=== PATIENT | male | born 1965 | race African-American/Black ===

== ENCOUNTER 2019-09-24 06:35 | Emergency (ER) | payer SELFPAY ==
[2019-09-24] MEDS ORDERED: Aspirin Chewable 81 MG TAB ONE ×2 (07:04)
[2019-09-24] MEDS ORDERED: Nitroglycerin 2% Ointment 1 INCH/1 GM Packet ONE (07:04)
[2019-09-24 07:24] LABS: ALT (SGPT) 24 U/L (8-55); AST (SGOT) 20 U/L (5-34); Albumin 4.1 g/dL (3.5-5.0); Alkaline Phosphatase 59 U/L (40-110); Anion Gap 17 mmol/L (10-20); BUN (Urea Nitrogen) 14 mg/dL (8.4-25.7); Bilirubin, Total 0.4 mg/dL (0.2-1.2); CK (CPK) 121 U/L (30-200); Calc. Creatinine Clearance 0 mL/min (70-130); Calcium 9.8 mg/dL (7.8-10.44); Carbon Dioxide 27 mmol/L (22-29); Chloride 101 mmol/L (98-107); Estimated GFR-MDRD 78; Glucose 88 mg/dL (70-105); Potassium 3.8 mmol/L (3.5-5.1); Protein, Total 8.1 g/dL (6.0-8.3); Sodium 141 mmol/L (136-145)
[2019-09-24 07:29] LABS: #Basophils 0.1 thou/uL (0.0-0.2); #Eosinphils 0.1 thou/uL (0.0-0.7); #Lymphocytes 2.8 thou/uL (1.20-3.40); #Monocytes 0.4 thou/uL (0.11-0.59); #Neutrophils 3.1 thou/uL (1.40-6.50); %Basophils 1.6 % (0.0-1.0); %Lymphocytes 44.3 % (21.0-51.0); %Monocytes 5.7 % (0.0-10.0); %Neutrophils 47.4 % (42.0-75.0); Band 1 % (5-11); Hemoglobin 12.5 g/dL (14.0-18.0); Large Platelets SLIGHT; Lymphocytes 42 % (21-51); MDiff Complete? YES; Mean Corpuscular HGB CONC 29.8 g/dL (32.0-36.0); Mean Corpuscular Hemoglobin 28.6 pg (27.0-31.0); Mean Corpuscular Volume 96.1 fL (78.0-98.0); Mean Platelet Volume 12.9 fL (7.4-10.4); Monocytes 7 % (0-10); Neutrophil 49 % (42-75); Platelet Count 150 thou/uL (130-400); Platelet Morphology Comment Appears Adequate; RBC Distribution Width 12.4 % (11.5-14.5); RBC Morphology Normal; Reactive Lymphocytes 1 % (0-10); Red Blood Cell (RBC) Count 4.39 mill/uL (4.70-6.10); White Blood Cell (WBC) Count 6.5 thou/uL (4.8-10.8)
--- NOTE | 2019-09-24 10:28 | CT ---
CTA ANGIO CHEST: 09/24/2019 HISTORY/TECHNIQUE: A spiral CT of the chest was done after a bolus of IV contrast for evaluation of chest pain and an el evated D-dimer. MIP reconstructions in various planes were done afterwards. FINDINGS: There is excellent opacification of the pulmonary arteries. No filling defects are seen to suggest em boli. There is no sign of aortic dissection or aneurysm. The left coronary artery fills well with con trast. The right is more difficult to see well but it does fill. There is no pericardial effusion. Th ere is no sign of aortic aneurysm or dissection. The mediastinum otherwise appears normal. The heart is somewhat enlarged. The lungs are clear, except for some minimal dependent atelectasis. The patient's thyroid gland seems generous in size but no space occupying disease is appreciated within the limitations of this study. Scans into the upper abdomen show no sign of adrenal enlargement, abnormalities of the upper abdomina l aorta or other visible organs. Both the celiac and SMA fill. IMPRESSION: 1. No evidence of pulmonary embolism or other acute thoracic changes. 2. Mild cardiomegaly. Preliminary report called to Dr. Lopez at 0849 hours on 09/24/2019. CODE CR POS: HOME
--- NOTE | 2019-09-24 10:33 | RAD ---
PORTABLE CHEST: 09/24/2019 FINDINGS: The heart is slightly enlarged but there is no vascular congestion or edema. The lungs are clear. The re are no effusions. The mediastinum appears normal. IMPRESSION: Slight cardiomegaly. POS: HOME
[2019-09-24] MEDS ORDERED: Iopamidol 370 76% 100 ML VIAL ONE (15:14)
== END 2019-09-24 10:57 | disposition home or self-care (01) ==
LOC: BURERS 06:35
DX: R07.9 Chest pain, unspecified (principal); I10 Essential (primary) hypertension; Z79.899 Other long term (current) drug therapy; Z87.891 Personal history of nicotine dependence
CPT/HCPCS: 71045; 71275; 80053; 82550; 83880; 84484; 85025; 85379; 93005; 96360; Q9967

== ENCOUNTER 2019-10-17 22:20 | Emergency (ER) | payer SELFPAY | END 2019-10-17 22:36 | disposition home or self-care (01) | LOC: BURERS 22:20 | DX: I10 Essential (primary) hypertension (principal); Z87.891 Personal history of nicotine dependence; Z79.899 Other long term (current) drug therapy | CPT/HCPCS: 99281 ==

== ENCOUNTER 2019-11-02 09:56 | Emergency (ER) | payer SELFPAY ==
[2019-11-02 10:24] LABS: #Basophils 0.1 thou/uL (0.0-0.2); #Lymphocytes 2.7 thou/uL (1.20-3.40); #Monocytes 0.5 thou/uL (0.11-0.59); #Neutrophils 6.9 thou/uL (1.40-6.50); %Basophils 1.1 % (0.0-1.0); %Eosinophils 0.1 % (0.0-10.0); %Lymphocytes 26.2 % (21.0-51.0); %Monocytes 5.3 % (0.0-10.0); %Neutrophils 67.4 % (42.0-75.0); Hemoglobin 13.1 g/dL (14.0-18.0); Mean Corpuscular Hemoglobin 28.5 pg (27.0-31.0); Mean Corpuscular Volume 95.2 fL (78.0-98.0); Mean Platelet Volume 11.8 fL (7.4-10.4); Platelet Count 189 thou/uL (130-400); Red Blood Cell (RBC) Count 4.61 mill/uL (4.70-6.10); White Blood Cell (WBC) Count 10.2 thou/uL (4.8-10.8)
[2019-11-02 10:40] LABS: ALT (SGPT) 23 U/L (8-55); AST (SGOT) 23 U/L (5-34); Albumin 4.5 g/dL (3.5-5.0); Alkaline Phosphatase 73 U/L (40-110); Anion Gap 16 mmol/L (10-20); BUN (Urea Nitrogen) 15 mg/dL (8.4-25.7); Bilirubin, Total 0.6 mg/dL (0.2-1.2); Calc. Creatinine Clearance 0 mL/min (70-130); Calcium 9.9 mg/dL (7.8-10.44); Carbon Dioxide 23 mmol/L (22-29); Chloride 101 mmol/L (98-107); Estimated GFR-MDRD 88; Globulin 4.4 g/dL (2.4-3.5); Glucose 111 mg/dL (70-105); Potassium 3.8 mmol/L (3.5-5.1); Protein, Total 8.9 g/dL (6.0-8.3); Sodium 136 mmol/L (136-145)
[2019-11-02] MEDS ORDERED: Aspirin Chewable 81 MG TAB ONE (10:45)
[2019-11-02] MEDS ORDERED: Metoprolol Tartrate 5 MG/5 ML VIAL ONE (10:51)
--- NOTE | 2019-11-02 18:35 | RAD ---
PORTABLE CHEST: 11/02/19 An AP portable film [id number] is compared with a 09/24/19 study. There has been no adverse interval change. The heart is normal in size and the lungs are clear. No in filtrate or effusion was seen. There is no vascular congestion or edema. IMPRESSION: No acute thoracic finding. POS: HOME
== END 2019-11-02 11:26 | disposition home or self-care (01) ==
LOC: BURERS 09:56
DX: I10 Essential (primary) hypertension (principal); R00.0 Tachycardia, unspecified; Z87.891 Personal history of nicotine dependence; Z79.899 Other long term (current) drug therapy
CPT/HCPCS: 71045; 80053; 83880; 84484; 85025; 93005; 94760; 96374